=== PATIENT | male | born 1995 | race Caucasian/White ===

== ENCOUNTER → 2016-08-09 | Outpatient (CLI) | payer BC ==
--- NOTE | 2016-08-12 14:09 | CPEEG ---
[f rep st] ELECTROENCEPHALOGRAM FOUR-HOUR VIDEO EEG. DATE OF STUDY: 08/09/2016 DATE OF INTERPRETATION: August 12, 2016. INTERPRETATION: This 4-hour video EEG recording is normal. There are no potentially epileptogenic abnormalities present during the awake or sleep recordings. During the video EEG monitoring session, the patient did not have any clinical events. REPORT: This 4-hour video EEG contains 10 hertz alpha activity over the posterior head regions. There was no abnormal activation at rest, during photic stimulation, or hyperventilation. The patient became drowsy and fell into sustained sleep during the study. There was no abnormal activation during drowsiness, sustained sleep, or during times of arousal. During the video EEG monitoring session, the patient did not have any clinical events. /[id number]/MODL MTDD
== END ==
LOC: FCPNEURO 08:22
PROVIDERS: ATTEND Psychiatry & Neurology Neurology
DX: R56.9 Unspecified convulsions (principal)

== ENCOUNTER 2017-08-08 11:06 | Emergency (ER) | payer BC ==
--- NOTE | 2017-08-08 11:12 | EDPHY ---
H & P Time Seen by Provider: 08/08/17 11:11 Constitutional: Initial Vital Signs Temperature (C) 36.8 C 08/08/17 11:14 Heart Rate 101 H 08/08/17 11:14 Respiratory Rate 18 08/08/17 11:14 Blood Pressure 152/82 H 08/08/17 11:14 O2 Sat (%) 97 08/08/17 11:14 O2 Delivery Mode Room Air Allergies/Adverse Reactions: No Known Allergies Allergy (Unverified 08/08/17 11:13) Home Medications: Medication Instructions Recorded Adderall 10 MG (*) 08/08/17 Calcium 08/08/17 Clonazepam 08/08/17 Medical Decision Making ED Course/Re-evaluation: CHIEF COMPLAINT: Seizure HISTORY OF PRESENT ILLNESS: The patient is a 22 y/o male with prior history of two prior seizures arriving via EMS for evaluation of another seizure today. He remembers going to class then no memory until sitting outside with medics. He is still mildly confused. During his prior seizures [id number] he had complete neuro work up and says "they chaulked it up to my medications." He uses Adderall and Klonopin and has not taken a dose of Klonopin for 1-2 days. He denies tongue bite, incontinence, severe headache, weakness, paresthesias, recent illness, or recent trauma. REVIEW OF SYSTEMS: A 10 point review of systems was performed and is negative with the exception of the elements mentioned in the history of present illness. PHYSICAL EXAM: HR, BP, O2 Sat, RR. Temp noted General Appearance: Alert, well hydrated, appropriate, and non-toxic appearing. Head: Atraumatic without scalp tenderness or obvious injury Eyes: Pupils equal, round, reactive to light and accommodation, EOMI, no trauma , no injection. Ears: Clear bilaterally, no perforation, normal landmarks Nose: Atraumatic, no rhinorrhea, clear. Throat: Mucus membranes moist. Neck: Supple, nontender, no lymphadenopathy. Respiratory: No retractions, no distress, no wheezes, and no accessory muscle use. Lungs are clear to auscultation bilaterally. Cardiovascular: Regular rate and rhythm, no murmurs, rubs, or gallops. Good capillary refill all extremities. Gastrointestinal: Abdomen is soft, nontender, non-distended, no masses, no rebound, no guarding, no peritoneal signs. Musculoskeletal: Normal active ROM of all extremities, atraumatic. Neurological: Alert, appropriate, and interactive. The patient has non-focal cranial nerves, motor, sensory, and cerebellar exam. Skin: No rashes, good turgor, no nodules on palpation. 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 Lives in [place] , [place]. DIFFERENTIAL DIAGNOSIS: The differential diagnosis for the patient's seizure included but was not limited to benzodiazepine withdrawal, electrolyte abnormality, alcohol withdrawal, medication noncompliance, head injury, MANAGER OF [employer]ING structural abnormality, and break through seizure. MEDICAL DECISION MAKING: This is a 22 y/o male who uses Klonopin and Adderall daily and has 2 prior seizures who presents mildly confused following a witnessed seizure while in class. He has a normal neurologic exam, he does have some difficulty remembering small details of his history, but is alert and oriented. Presentation is consistent with a benzodiazepine withdrawal seizure since stopping his Klonopin 1-2 days ago. He's had extensive prior work ups for this that assumed a similar cause. No indication for imaging or further work up here. Recommended either taking Klonopin consistently or tapering off of it. Recommended follow up with his PCP and neurologist. Standard seizure care and return precautions discussed. - Data Points Medications Given: Discontinued Medications Lorazepam (Ativan Injection) 1 mg IVP EDNOW ONE Stop: 08/08/17 11:21 Last Admin: 08/08/17 11:20 Dose: 1 mg Departure - Departure Disposition: Home, Routine, Self-Care Clinical Impression: Benzodiazepine withdrawal with complication, Seizure Condition: Good Instructions: Clonazepam (By mouth), Recurrent Seizures in Adults (ED) Additional Instructions: 1. Your seizure is likely due to withdrawal from your Klonopin. You need to either take this regularly or taper off of it. 2. Please follow up with your primary care provider and neurologist in the next week. 3. No driving or other activities that could put you or others at risk until cleared by neurology. 4. Return to the ED for recurrent seizures, severe headache, weakness or numbness, or other worsening of condition. Referrals: Marcelino Owens DO [Doctor of Osteopathy] - As per Instructions Report Scribed for: Zacarias Hidalgo Report Scribed by: Jenny Byrnes Date of Report: 08/08/17 Time of Report: 11:19
[2017-08-08 11:16] VITALS: O2SAT 97
[2017-08-08] MEDS ORDERED: LORazepam 2 MG/ML INJ ONE (11:19)
[2017-08-08] MEDS ORDERED: LORazepam 2 MG/ML INJ IVP ONE (11:20)
[2017-08-08 11:57] VITALS: BP 151/96; PULSE 95; RESP 16; TEMP 97.9
== END 2017-08-08 11:57 | disposition home or self-care (01) ==
LOC: EDUNIT#
DX: G40.909 Epilepsy, unspecified, not intractable, without status epilepticus (principal); F19.239 Other psychoactive substance dependence with withdrawal, unspecified
CPT/HCPCS: 96374; J2060